=== PATIENT | female | born 1985 | race Caucasian/White ===

== ENCOUNTER 2016-09-16 21:47 | Emergency (ER) | payer SELFPAY ==
[~2016-09-16] VITALS: Ht 157.5 cm; Wt 61.2 kg
[2016-09-16 22:14] VITALS: BP 152/103
[2016-09-16 22:40] LABS: BILIRUBIN,URINE NEGATIVE (NEG); GLUCOSE,URINE NEGATIVE (NEG); NEG OBC UR NEG; NITRITE,URINE NEGATIVE (NEG); POS OBC UR POS; PROTEIN,URINE NEGATIVE (NEG-TRACE)
[2016-09-16] MEDS ORDERED: FLUT9.9S NS (22:48)
--- NOTE | 2016-09-17 03:08 | ED.ADGEN ---
Past Medical History Past Medical History: Other Additional Past Medical Histor: ethol abuse, heart murmur Past Surgical History: No Surgical History Alcohol Use: Heavy Drug Use: Cocaine, Marijuana Adult General Chief Complaint Chief Complaint: NAUSEA/VOMITING/DIARRHA HPI HPI Patient is a 31 year old woman, urgency emergency department with multiple complaints. Initially, patient was complaining of abdominal pain and vomiting, at time of triage, however when I evaluated the patient, she stated that she did not have any vomiting since yesterday, and was experiencing abdominal pain or other concerns at that point. She stated that she was experiencing upper respiratory type symptoms, including nasal congestion and cough for the past several weeks, intermittently, which had not been improved with Tessalon Perle. No injuries, no suicidal or homicidal ideation, no auditory or visual hallucinations. Patient does have an odor of alcohol, and states that she did drink a pint a half of vodka before coming to the ED, she typically drinks about this much daily. Review of Systems Review of Systems Review of a cane Constitutional: Denies fever or chills. [] Eyes: Denies change in visual acuity. [] HENT: Denies nasal congestion or sore throat. [] Respiratory: Denies cough or shortness of breath. [] Cardiovascular: Denies chest pain or edema. [] GI: Nausea, vomiting, no bloody stools or diarrhea. Resolved. : Denies dysuria. [] Musculoskeletal: Denies back pain or joint pain. [] Integument: Denies rash. [] Neurologic: Denies headache, focal weakness or sensory changes. [] Endocrine: Denies polyuria or polydipsia. [] Lymphatic: Denies swollen glands. [] Psychiatric: Denies depression or anxiety. [] Physical Exam Physical Exam Constitutional: Well developed, well nourished, no acute distress, non-toxic appearance. [] HENT: Normocephalic, atraumatic, bilateral external ears normal, oropharynx moist, no oral exudates. [Mild postnasal drip noted. Turbinates swelling with clear rhinorrhea.] Eyes: PERRLA, EOMI, conjunctiva normal, no discharge. [] Neck: Normal range of motion, no tenderness, supple, no stridor. [] Cardiovascular:Heart rate regular rhythm, no murmur , S1, S2, no rubs or gallops. [] Lungs & Thorax: Bilateral breath sounds clear to auscultation , no wheezing, rhonchi, rales. No chest wall tenderness or or crepitus.[] Abdomen: Bowel sounds normal, soft, no tenderness, no rebound, rigidity or guarding, no masses, no pulsatile masses. [] Skin: Warm, dry, no erythema, no rash. [] Back: No tenderness, no CVA tenderness. [] Extremities: No tenderness, no cyanosis, no clubbing, ROM intact, no edema. Negative Homans sign. [] Neurologic: Alert and oriented X 3, normal motor function, normal sensory function, no focal deficits noted. [] Psychologic: Affect normal, judgement normal, mood normal. [] Current Patient Data Vital Signs Vital Signs Date Time Temp Pulse Resp B/P Pulse Ox O2 Delivery O2 Flow Rate FiO2 09/16/16 22:14 97.7 87 16 152/103 98 Room Air 97.7 Lab Values Laboratory Tests Test 09/16/16 22:20 Urine Collection Type Unknown Urine Color Yellow Urine Clarity Clear Urine pH 7.0 Urine Specific [place] <=1.005 Urine Protein Negativemg/dL (NEG-TRACE) Urine Glucose (UA) Negativemg/dL (NEG) Urine Ketones (Stick) Negativemg/dL (NEG) Urine Blood Large (NEG) Urine Nitrite Negative (NEG) Urine Bilirubin Negative (NEG) Urine Urobilinogen Dipstick 1.0mg/dL (0.2 mg/dL) Urine Leukocyte Esterase Small (NEG) Urine Test Negative (NEG) EKG EKG ECG: Rhythm strip: Heart rate 86 beats minute, sinus rhythm, no ectopy. As interpreted by me. [] Radiology/Procedures Radiology/Procedures Not indicated. [] Course & Med Decision Making Course & Med Decision Making Pertinent Labs and Imaging studies reviewed. (See chart for details) Lengthy discussion with patient at bedside. She does have odor of alcohol, which she admitted to, but is clinically sober. At this time the patient states she is not experiencing any GI symptoms, is experiencing some upper respiratory symptoms, but is having no evidence of lower airspace disease, and has stable vitals in the ED, is afebrile by antipyretics, and has clear breath sounds with anoxic saturation 100% and respiratory rate of 20 that is unlabored. Patient then became tearful during a conversation and stated that she was concerned about her drinking, she has 2 children who depend on her. I discussed with the patient that I would be happy to contact the PAT team, to discuss potential options for rehabilitation from her alcohol addiction, patient states she's been in rehabilitation previously, and would be interested in the future, but at this time does not feel like she is ready to enter a program. She states that she would like to call her boyfriend accompanies her up, and that she will go home, will take the information provided to her in the ED, and will consider her options. She has Tessheron Garcia at home, I did prescribe for her Flonase, to use twice daily to see if this will assist with her nasal congestion symptoms. I did discuss with her the effects of alcohol abuse and tobacco abuse on the body. Patient voiced understanding, was calm, cooperative, oriented 4, discharged home in stable condition significant other with information prescriptions and plan as stated. Dragon Disclaimer Dragon Disclaimer This electronic medical record was generated, in whole or in part, using a voice recognition dictation system. Departure Impression: Primary Impression: Upper respiratory infection Additional Impression: Alcohol abuse Disposition: 01 HOME, SELF-CARE Condition: STABLE Scripts Fluticasone Propionate (Flonase Allergy Relief)9.9 Ml [place].susp2 Sprays NS DAILY #1 BOTTLE Prov:GRETA CORDON DO 09/16/16 Problem Qualifiers Primary Impression: Upper respiratory infection URI type: unspecified viral URI Qualified Code: J06.9 - Acute upper respiratory infection, unspecified GRETA CORDON DO Sep 17, 2016 03:08
== END 2016-09-16 23:05 | disposition home or self-care (01) ==
LOC: ER 21:47
DX: J06.9 Acute upper respiratory infection, unspecified (principal); F10.10 Alcohol abuse, uncomplicated; F12.10 Cannabis abuse, uncomplicated; F14.10 Cocaine abuse, uncomplicated; R11.2 Nausea with vomiting, unspecified; R10.9 Unspecified abdominal pain
CPT/HCPCS: 81003; 81025; 99284

== ENCOUNTER 2017-08-11 02:56 | Emergency (ER) | payer BC, OTHER ==
[~2017-08-11] VITALS: Ht 157.5 cm; Wt 59.0 kg
[~2017-08-11 02:56] MED LIST: FLUT9.9S NS
[2017-08-11 03:01] VITALS: BP 134/77
[2017-08-11] MEDS ORDERED: IBUPROFEN 600 MG TABLET. PO ONE (04:00)
--- NOTE | 2017-08-11 05:48 | PHYS DOC ---
Past Medical History Past Medical History: No Pertinent History Additional Past Medical Histor: ethol abuse, heart murmur Past Surgical History: No Surgical History Alcohol Use: Occasionally Drug Use: None Adult General Chief Complaint Chief Complaint: UPPER EXTREMITY INJURY HPI HPI Patient is a 32 year old handed female [employer] her presents with persistent left arm pain tenderness and swelling starting this morning. Patient denies direct trauma to does report repetitive left arm use with work. [] Review of Systems Review of Systems Review of symptoms as per history of present illness. All other systems were reviewed and found to be within normal limits, except as documented in this note. Current Medications Current Medications Current Medications Medications (Trade) Dose Ordered Sig/Toño Start Time Stop Time Status Last Admin Dose Admin Ibuprofen (Motrin) 600 mg 1X ONCE 08/11/17 04:00 08/11/17 04:01 DC 08/11/17 04:00 600 MG Allergies Allergies Allergies Coded Allergies Type Severity Reaction Last Updated Verified No Known Drug Allergies 08/11/17 No Physical Exam Physical Exam Constitutional: Well developed, well nourished, no acute distress, non-toxic appearance. [] HENT: Normocephalic, atraumatic, bilateral external ears normal, oropharynx moist, no oral exudates, nose normal. [] Eyes: PERRLA, EOMI, conjunctiva normal, no discharge. [] Extremities: Left forearm tenderness, swelling over radial surface, tenderness to palpation over tendon sheath, pain reproduces with extension and flexion of the wrist. [] Neurologic: Alert and oriented X 3, normal motor function, normal sensory function, no focal deficits noted. [] Psychologic: Affect normal, judgement normal, mood normal. [] Current Patient Data Vital Signs Vital Signs Date Time Temp Pulse Resp B/P (MAP) Pulse Ox O2 Delivery O2 Flow Rate FiO2 08/11/17 03:01 97.9 76 18 100 Room Air 97.9 EKG EKG [] Radiology/Procedures Radiology/Procedures [] Course & Med Decision Making Course & Med Decision Making Pertinent Labs and Imaging studies reviewed. (See chart for details) [Left wrist tendinitis. Supportive measures entertained. Work comp follow-up in a.m.] Jeffrey Disclaimer Jeffrey Disclaimer This electronic medical record was generated, in whole or in part, using a voice recognition dictation system. Departure Departure Impression: Primary Impression: Tendinitis Disposition: 01 HOME, SELF-CARE Condition: GOOD Patient Instructions: Tendinitis, [id number] Additional Instructions: Please take ibuprofen and Tylenol for pain, apply ice to affected area and wear sling for comfort. Follow up with work comp physician in the morning for work restrictions. In the meantime, do not use left arm. KEMAL NUNEZ DO Aug 11, 2017 05:48
== END 2017-08-11 04:03 | disposition home or self-care (01) ==
LOC: ER 02:56
DX: M77.9 Enthesopathy, unspecified (principal)
CPT/HCPCS: 99282